=== PATIENT | male | born 1960 | race Caucasian/White ===

== ENCOUNTER 2016-11-24 14:01 | Outpatient (CLI) | payer BC ==
[2015-09-10 18:47] VITALS: O2SAT 96
== END 2016-11-24 14:02 | disposition home or self-care (01) ==
LOC: CONVCARE 14:01
PROVIDERS: ATTEND Orthopaedic Surgery
DX: M25.562 Pain in left knee (principal); M94.262 Chondromalacia, left knee
CPT/HCPCS: 73560